=== PATIENT | female | born 2005 | race Two or more races ===

== ENCOUNTER 2025-10-30 12:31 | Outpatient (AMB) | payer BC, SELFPAY ==
--- OUTSIDE RECORDS SUMMARY | 2025-10-30 12:33 | XMS_ITS | Encounter Summary ---
Author Organization [facility] Address [address] [place] [address] Care Team Providers Care Comb Setter Name Role Phone PcpLaya MD Primary Care Provider Unavailabl e Encounter Details Date Type Department Care Team (Late st Contact Info) Description 06/11/2023 Orders Only [address] [address] Meron Mendes DMD [address] [place] [address] Social History Tobacco Use Types Packs/Day Years Used Date Smoking Tobacco: Never Assessed Comments Unknown Sex and Gender Information Value Date Recorded Sex Assigned at Not on file Legal Sex Female 4:27 PM EDT Gender Identity Not on file Sexual Orientation Not on file COVID-19 Exposure Response Date Recorded In the last 10 days, have yo u been in contact with someone who was confirmed or suspected to have Coronavirus/COVID-19? No / Unsure 05/28/2023 12:20 PM EDT documented as of this encounter Plan of Treatment Not on file documented as of this encounter Visit Diagnoses Not on filedocumented in this encounter Care Teams Comb Setter Relationship Specialty Start Date End Date PcpLaya MD [address] [place] [id number] PCP - General Internal Medicine 09/24/22 documented as of this encounter
--- OUTSIDE RECORDS SUMMARY | 2025-10-30 12:33 | XMS_ITS | Encounter Summary ---
Author Organization [employer] Address [address] [place] [address] Care Team Providers Care Kiss Mixer Name Role Phone Physician, Pcp Unknown Primary Care Provider Shahrzad vailable Encounter Details Date Type Department Care Team (Latest Contact Info) Description 10/29/2025 Lab Requisition [facility] - Main Lab [address] [facility] [place] [address] Candie Arellano MD [address] [facility] [address] [place] [address] Encounter for gynecological examination (general) (routine) without abnormal findings Social History Tobacco Use Types Packs/Day Years Used Date Smoking Tobacco: Never Assessed Comments Unknown Sex and Gender Information Value Date Recorded Sex Assigned at Not on file Legal Sex Female 1:34 PM EST Gender Identity Not on file Sexual Orientation Not on file documented as of this encounter Plan of Treatment Pending Results Name Type Priority Associated Diagnoses Date /Time Pap smear Pathology and Cytology Routine Encounter for gynecological examination (general) (routine) without abnormal findings 10/28/2025 12:00 AM EST documented as of this encounter Visit Diagnoses Diagnosis Encounter for gynecological examination (general) (routine) without abnormal findings documented in this encounter Care Teams Kiss Mixer Relationship Specialty Start Date End Date Physician, Pcp Unknown PCP - General 10/29/25 documented as of this encounter
--- OUTSIDE RECORDS SUMMARY | 2025-10-30 12:33 | XMS_ITS | Encounter Summary ---
Author Organization [facility] Address [address] [place] [address] Care Team Providers Care Paper Inspector Name Role Phone Physician, Pcp Unknown Primary Care Provider Shahrzad vailable Encounter Details Date Type Department Care Team (Latest Contact Info) Description 10/28/2025 Lab Requisition [facility] - Main Lab 299 [facility] [place] [address] Candie Arellano MD [address] [phone] Encounter for screening for infections with a predominantly sexual mode of transmission; Acute vaginitis Social History Tobacco Use Types Packs/Day Years Used Date Smoking Tobacco: Never Assessed Comments Unknown Sex and Gender Information Value Date Recorded Sex Assigned at Not on file Legal Sex Female 1:34 PM EST Gender Identity Not on file Sexual Orientation Not on file documented as of this encounter Plan of Treatment Not on file documented as of this encounter Procedures Procedure Name Priority Date/Time Associated Diagnosis Comments VAGINITIS PATHOGENS BY PCR Routine 10/28/2025 12:00 AM EST Encounter for screening for infections with a predominantly sexual mode of transmission Acute vaginitis CHLAMYDIA TRACHOMATIS AND NEISSERIA GONORRHOEAE PCR Routine 10/28/2025 12:00 AM EST Encounter for screening for infections with a predominantly sexual mode of transmission Acute vaginitis documented in this encounter Results * Vaginitis pathogens molecular study (10/28/2025 12:00 AM EST) Trichomonas vaginalis Negative Negative 10/29/2025 8:59 AM EST [facility] Gardnerella vaginalis Negative Negative 10/29/2025 8:59 AM EST [facility] Vanessa Species Negative Negative 8:59 AM EST [facility] Swab Vaginal structure / Unknown 10/28/2025 10/28/2025 1:38 PM EST us Candie Arellano MD LAB MICROBIOLOGY - GENER AL ORDERABLES Final Result Performing Organization Address City/[facility]/ZIP Co de Phone Number [facility] [address] [place] [address], [place] [phone] * Chlamydia trachomatis and Neisseria gonorrhoeae molecular study (10/28/2025 12:00 AM EST) Neisseria gonorrhoeae PCR Negative Negative LAB MOLECULAR DIAGNOSTICS METHOD 10/28/2025 4:28 PM EST [facility] Chlamydia trachomatis PCR Negative Negative LAB MOLECULAR DIAGNOSTICS METHOD 10/28/2025 4:28 PM EST [facility] Swab Cervix uteri structure / Unknown 10/28/2025 10/28/2025 1:38 PM EST us Candie Arellano MD LAB MICROBIOLOGY - GENER AL ORDERABLES Final Result Performing Organization Address City/[facility]/ZIP Co de Phone Number [facility] [address] [place] [address], [place] [phone] documented in this encounter Visit Diagnoses Diagnosis Encounter for screening for infections with a predominantly sexual mode of transmission Acute vaginitis Unspecified vaginitis and vulvovaginitis documented in this encounter Care Teams Paper Inspector Relationship Specialty Start Date End Date Physician, Pcp Unknown PCP - General 10/29/25 documented as of this encounter
--- OUTSIDE RECORDS SUMMARY | 2025-10-30 12:33 | XMS_ITS | Encounter Summary ---
Author Organization [employer] [facility] Address [address] [place] [address] Care Team Providers Care Change Release Manager Name Role Phone Unavailable Primary Care Provider Unavailabl e Encounter Details Date Type Department Care Team (Latest Contact Info) Description 08/16/2021 Abstract [facility] Dental, Provider, DDS Social History Tobacco Use Types Packs/Day Years Used Date Smoking Tobacco: Never Assessed Comments Unknown Sex and Gender Information Value Date Recorded Sex Assigned at Female 09/17/2022 10:34 AM EDT Legal Sex Female 10:34 AM EDT Gender Identity Female 09/17/2022 10:34 AM EDT Sexual Orientation Straight 09/17/2022 10 :34 AM EDT documented as of this encounter Plan of Treatment Not on file documented as of this encounter Visit Diagnoses Not on filedocumented in this encounter
--- OUTSIDE RECORDS SUMMARY | 2025-10-30 12:33 | XMS_ITS | Clinical Summary ---
Author Organization [facility] Address [address] [place] [address] Care Team Providers Care Tag Stringer Name Role Phone Pcp, No MD Primary Care Provider Unavailabl e Allergies No known active allergies Medications amphetamine-dex troamphetamine XR (ADDERALL XR) 15 mg 24 hr capsule as needed. 04/29/2023 Active methylphenidate HCl 54 mg tablet extended release 24hr as needed. 05/20/2023 Activ e atomoxetine (STRATTERA) 40 mg capsule Take 40 mg by mouth in the morning. Active chlorhexidine (Peridex) 0.12 % solution Apply 15 mL to the mouth or throat in the morning and 15 mL before bedtime. 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 Never true 06/26/20 23 Within the past 12 months, t he food you bought just didn't last and you didn't have money to get more. Never true 06/26/2023 Comments No Sex and Gender Information Value Date Recorded Sex Assigned at Not on file Legal Sex Female 4:27 PM EDT Gender Identity Not on file Sexual Orientation Not on file Last Filed Vital Signs Vital Sign Reading Time Taken Comments Blood Pressure 106/56 06/27/2023 2:59 PM EDT Pulse 98 06/27/2023 2:59 PM EDT Temperature 36.6 C (97.8 F) 06/27/2023 2:59 PM EDT Respiratory Rate 18 06/27/2023 2:59 PM EDT Oxygen Saturation 99% 06/27/2023 2:59 PM EDT Inhaled Oxygen Concentration - - Weight 69.7 kg (153 lb 11.2 oz) 06/26/2023 4:32 PM EDT Height 167.6 cm (5' 6 ) 06/26/2023 4:32 PM EDT Body Mass Index 24.81 06/26/2023 4:32 PM EDT Plan of Treatment Health Maintenance Due Date Last Done Comments HIV Screening 2003 Chlamydia Screening 2019 Hepatitis C Screening 2021 Pneumococcal Vaccine: At-Ris k and Pediatric Patients (0 to 49 Years) (1 of 2 - PCV) 2022 01/25/2005, 2003, 2003 Pap Smear 2024 DTaP,Tdap,and Td Vaccines (6 - Td or Tdap) 05/16/2025 05/16/2015, 01/14/2008, 2003, Additional history exists COVID-19 Vaccine (4 - 2024-2 6 season) 2025 12/02/2021, 06/05/2021, 05/15/2021 Influenza Vaccine (#1) 2025 0, 08/17/2009, 09/10/2008, Additional history exists Zoster Vaccines (1 of 2) 2053 Hepatitis B Vaccines Completed 2003, 2003, 2003 MMR Vaccines Completed 01/14/2008, 06/10/2004 HPV Vaccines Completed 09/11/2018, 11/26/2017 Hepatitis A Vaccines Completed 10/27/2020, 11/26/19 18 Meningococcal Vaccine Completed 10/27/2020, 015 Medical Devices Implanted Type Area Building Certifier Device Identifier Shelf Expiration Date Model / Serial / Lot 1cc Jurgen Dbm Putty, Human Tissue, Demineralized Bone Matrix - [id number] - [id number] Implanted:Qty: 1 on 06/26/2023 by Carlton Back DDS at [facility] Bone N/A: Maxilla [employer] - Sofamor Danek 04/01/2027 [id number] / [id number] / 6mm Synthes Titanium Matrixmidface Screw, Self-Drilling - [id number] Implanted:Qty: 19 on 06/26/2023 by Carlton Back DDS at [facility] Ortho Screw Bilateral: Maxilla DePuy Synthes CMF 503.22 6.01 / / 6mm Synthes Titanium Matrixmidface Emergency Screw - [id number] Implanted:Qty: 3 on 06/26/2023 by Carlton Back DDS at [facility] Ortho Screw N/A: Maxilla DePuy Synthes CMF 503.23 6.01 / / Trumatch Orthognathics Full Maxillary Surgical Kit - [id number] Implanted:Qty: 1 on 06/26/2023 by Carlton Back DDS at [facility] N/A: Maxilla Synthes [facility] [id number] / / Explanted Type Area Building Certifier Device Identifier Shelf Expiration Date Model / Serial / Lot 1.1 Mm Drill Bit, Mini Quick Coupling, 12 Mm Stop - [id number] Explanted:Qty : 1 on 06/26/2023 at [facility] [employer] DePuy Synthes Spine 317.32 / / Description:NOT AN IMPLANT Insurance Advance Directives For more information, please contact: [phone] * Full Code (Latest Code Status on File) Date Activated Date Inactivated Comments 06/26/2023 12:57 PM 06/27/2023 7:19 PM Care Teams Tag Stringer Relationship Specialty Start Date End Date Laya Jin MD [address] [place] [address] PCP - General Internal Medicine 09/24/22
--- OUTSIDE RECORDS SUMMARY | 2025-10-30 12:33 | XMS_ITS | Clinical Summary ---
Author Organization [address] [facility] Address [address] [place] [address] Phone Care Team Providers Care Senior Engineering Specialist Name Role Phone Physician, Pcp Unknown Primary Care Provider Shahrzad vailable Encounters Date Type Department Care Team Description 10/29/2025 Lab Requisition [facility] [address] [facility] [place] [address] Candie Arellano MD Encounter for gynecological examination (general) (routine) without abnormal findings 10/28/2025 Lab Requisition [facility] [address] [facility] [place] [address] Candie Arellano MD Encounter for screening for infections with a predominantly sexual mode of transmission; Acute vaginitis from Last 3 Months Social History Tobacco Use Types Packs/Day Years Used Date Smoking Tobacco: Never Assessed Comments Unknown Sex and Gender Information Value Date Recorded Sex Assigned at Not on file Legal Sex Female 1:34 PM EST Gender Identity Not on file Sexual Orientation Not on file Plan of Treatment Health Maintenance Due Date Last Done Comments HPV Vaccines (1 - 3-dose series) 2018 Meningococcal B Vaccine (1 o f 2 - Standard) 2019 DTaP,Tdap,and Td Vaccines (1 - Tdap) 2022 Hepatitis B Vaccines (1 of 3 - 19+ 3-dose series) 2022 Cervical Cancer Screening: P ap Smear 2024 Depression Screening 11/18/2024 COVID-19 Vaccine (1 - 2024-2 6 season) 2025 Influenza Vaccine (#1) 2025 HIV Screening 10/28/2025 Hepatitis C Screening 10/28/2025 Social Influencers of Health Screening 10/28/2025 Gonorrhea/Chlamydia Screening 10/28/2026 10/28/2025 RSV Immunization Adult Patie nts (1 - 1-dose 75+ series) 2078 HIB Vaccines Aged Out No longer eligi ble based on patient's age to complete this topic Hepatitis A Vaccines Aged Out No long er eligible based on patient's age to complete this topic IPV Vaccines Aged Out No longer eligi ble based on patient's age to complete this topic MMR Vaccines Aged Out No longer eligi ble based on patient's age to complete this topic Meningococcal ACWY Vaccine Aged Out N o longer eligible based on patient's age to complete this topic Pneumococcal Vaccine: Pediat rics (0 to 5 Years) and At-Risk Patients (6 to 49 Years) Aged Out No longer eligi ble based on patient's age to complete this topic RSV Immunization Patients Un alvaro 20 months Aged Out No longer eligible b ased on patient's age to complete this topic Varicella Vaccines Aged Out No longer eligible based on patient's age to complete this topic Procedures Procedure Name Priority Date/Time Associated Diagnosis Comments VAGINITIS PATHOGENS BY PCR Routine 10/28/2025 12:00 AM EST Encounter for screening for infections with a predominantly sexual mode of transmission Acute vaginitis CHLAMYDIA TRACHOMATIS AND NEISSERIA GONORRHOEAE PCR Routine 10/28/2025 12:00 AM EST Encounter for screening for infections with a predominantly sexual mode of transmission Acute vaginitis from Last 3 Months Results * Vaginitis pathogens molecular study (10/28/2025 12:00 AM EST) Trichomonas vaginalis Negative Negative 10/29/2025 8:59 AM EST [facility] Gardnerella vaginalis Negative Negative 10/29/2025 8:59 AM EST [facility] Vanessa Species Negative Negative 8:59 AM EST [facility] Swab Vaginal structure / Unknown 10/28/2025 10/28/2025 1:38 PM EST us Candie Arellano MD LAB MICROBIOLOGY - GENER AL ORDERABLES Final Result [facility] [address] [place] [address], [place] [phone] * Chlamydia trachomatis and Neisseria gonorrhoeae molecular study (10/28/2025 12:00 AM EST) Neisseria gonorrhoeae PCR Negative Negative LAB MOLECULAR DIAGNOSTICS METHOD 10/28/2025 4:28 PM EST [facility] Chlamydia trachomatis PCR Negative Negative LAB MOLECULAR DIAGNOSTICS METHOD 10/28/2025 4:28 PM EST [facility] Swab Cervix uteri structure / Unknown 10/28/2025 10/28/2025 1:38 PM EST us Candie Arellano MD LAB MICROBIOLOGY - GENER AL ORDERABLES Final Result Performing Organization Address City/[facility]/ZIP Co de Phone Number [facility] [address] [place] [address], [place] [phone] from Last [address] [place] [address] [place] [address] ([facility]) Care Teams Senior Engineering Specialist Relationship Specialty Start Date End Date Physician, Pcp Unknown PCP - General 10/29/25
--- OUTSIDE RECORDS SUMMARY | 2025-10-30 12:33 | XMS_ITS | Clinical Summary ---
Author Organization [employer] Address [address] [facility] [address] [place] [address] Care Team Providers Care Manager Nuclear Name Role Phone Unavailable Primary Care Provider Unavailabl e Allergies No known active allergies Medications amphetamine-dext roamphetamine XR (Adderall XR) 15 MG 24 hr capsule Take 15 mg by mouth. 04/29/2023 Active cetirizine (ZyrTEC) 10 MG tablet Take 1 tablet by mouth. 01/14/2023 Active Social History Tobacco Use Types Packs/Day Years Used Date Smoking Tobacco: Never Passive Smoke Exposure: Never Smokeless Tobacco: Never Tobacco Cessation:Counseling Given: Not Answered Comments Unknown Sex and Gender Information Value Date Recorded Sex Assigned at Female 09/17/2022 10:34 AM EDT Legal Sex Female 10:34 AM EDT Gender Identity Female 09/17/2022 10:34 AM EDT Sexual Orientation Straight 09/17/2022 10 :34 AM EDT Last Filed Vital Signs Vital Sign Reading Time Taken Comments Blood Pressure 100/62 11/12/2023 2:18 PM EST Pulse 65 11/12/2023 2:18 PM EST Temperature - - Respiratory Rate - - Oxygen Saturation - - Inhaled Oxygen Concentration - - Weight - - Height - - Body Mass Index - - Plan of Treatment Health Maintenance Due Date Last Done Comments Chlamydia and Gonorrhea Screening 2003 Depression Screening 2003 HIV Screening 2003 Lipid Panel 2003 SDOH Screening 2003 Disability Screening 2003 Alcohol/Substance Use Screening 2015 Family Planning (PISQ) 2018 Hepatitis C Screening 2021 Pneumococcal Vaccine: Pediatrics (0 to 5 Years) and At-Risk Patients (6 to 49) Years (1 of 2 - PCV) 2022 01/25/2005, 2003, 2003 Meningococcal B Vaccine (2 of 2 - Trumenba SCDM 2-dose series) 12/11/2023 06/10/2023 Dental Prophylaxis 05/14/2024 11/12/2023, 0 08/16/2021, 01/02/2019, Additional history exists Pap Smear 2024 Dental Oral Exam 06/03/2024 12/03/2023, , 01/02/2019, Additional history exists Tobacco Screening 11/12/2024 11/12/2023 Dental X-Ray: Bitewings 12/04/2024 12/03/19, 12/03/2023, 11/12/2023, Additional history exists DTaP/Tdap/Td Vaccines (6 - Td or Tdap) 05/16/2025 05/16/2015, 01/14/2008, 2003, Additional history exists COVID-19 Vaccine ( season) 2025 08/24/2022, 12/02/2021, 06/05/2021, Additional history exists Influenza Vaccine (#1) 2025 , 12/02/2021, 10/27/2020, Additional history exists Dental X-Ray: Full Mouth 11/13/2026 11/12/2023, 06/19 Zoster Vaccines (1 of 2) 2053 RSV Patients and Patients Aged 60 years or older (1 - 1-dose 75+ series) 2078 Hepatitis B Vaccines Completed 2003, 2003, 2003 HIB Vaccines Completed 01/25/2005, 11/19, 2003, Additional history exists IPV Vaccines Completed 01/14/2008, 01/16, 2003, Additional history exists HPV Vaccines Completed 09/11/2018, 08/19, 11/26/2017, Additional history exists Hepatitis A Vaccines Completed 10/27/2020, 11/26/19 18 Meningococcal Vaccine Completed 10/27/2020 , 10/27/2020, 05/16/2015 RSV under 20 months Aged Out No longe r eligible based on patient's age to complete this topic Rotavirus Vaccines Aged Out No longer eligible based on patient's age to complete this topic Procedures Procedure Name Priority Date/Time Associated Diagnosis Comments BITEWING - SINGLE RADIOGRAPHIC IMAGE Routine 12/03/2023 2:00 PM EST PERIODIC ORAL EVALUATION - ESTABLISHED PATIENT Routine 12/03/2023 2:00 PM EST PROPHYLAXIS - ADULT Routine 11/12/2023 2 :00 PM EST INTRAORAL - COMPLETE SERIES OF RADIOGRAPHIC IMAGES Routine 11/12/2023 2:00 PM EST from Last 3 Months or Most Recently Relevant to Health Maintenance Insurance DENTAL - [employer] D[employer] PPO [facility]ENT[facility] [employer] DENTAL PPO
--- NOTE | 2025-10-30 12:38 | MHC.OFFWIV ---
Intake Vital Signs 10/30/25 12:41 Height 5 ft 6 in Weight 164 lb BMI 26.5 BP 100/70 Blood Pressure Location Lt brachial Position Sitting Respiration 16 Pulse 92 Pulse Source Pulse Oximeter Temp 98.2 F Temp Source Oral Pulse Oximetry (%) 98 Oxygen Delivery Method Room Air Intake Visit Reasons: EP, possible sinus infection Intake Note: Pt is here tody nasal congestion and swollen throat Allergies No Known Allergies Allergy (Verified 10/30/25 12:38) Medication List - Last Reconciled 10/30/25 by Chase Bruno MD dextroamphetamine-amphetamine 15 mg ER (Adderall XR) 1 cap PO QAM lactulose PO HPI EP, possible sinus infection HPI Details Nasal congestion x 2 weeks then went away and then this past few days is back and worse tenderness at maxillary sinuses Mild feverishness but no fever postnasal drip with sore throat mild cough without shortness of breast no sick contacts Review of Systems Const Denies chills, Denies fatigue, Denies fever(s), Denies headache(s) and Denies weakness ENT Details: see HPI Denies dizziness and Denies headache(s) Card Denies dyspnea Resp Reports cough ( mild), Denies dyspnea, Denies wheezing and Denies other ( shortness of breath) Musc Denies numbness and Denies tingling Neuro Denies dizziness, Denies headache(s), Denies numbness, Denies tingling, Denies paresthesias and Denies weakness Psych Denies anxiety and Denies depression Endo Denies fatigue Aller/Immun Denies wheezing Physical Exam Vital Signs: Last Vital Signs Temp 98.2 F 10/30/25 12:41 Pulse 92 10/30/25 12:41 Resp 16 10/30/25 12:41 BP 100/70 10/30/25 12:41 Pulse Ox 98 10/30/25 12:41 Oxygen Delivery Method Room Air 10/30/25 12:41 BMI result Body Mass Index 26.5 Const General: no acute distress and well developed Nutritional Appearance: well nourished Orientation/consciousness: patient oriented x3 HEENT Other: significant nasal congestion and discharge with scant blood posterior pharyngeal erythema but no exudates minimal LAD pain and tenderness at maxillary sinuses with decreased transillumination on left Head: Yes normocephalic and Yes atraumatic Eyes General: appearance normal, both eyes and all related structures Pupils: Equal, round and reactive pupils present EOM: EOMs intact bilaterally Resp Effort & Inspection: normal respiratory effort Auscultation: clear to auscultation bilaterally Cardio Rate: regular rate Rhythm: regular rhythm Heart sounds: S1 normal heart sound present, S2 normal heart sound present, no gallops, no murmurs and no rubs Neuro General: patient oriented x3 and gait normal Cranial nerves: Yes Equal, round and reactive pupils present Psych Affect: normal affect Results AMB Rapid Strep AMB Rapid Strep Negative Last Edit by Martha Escalante CMA on 10/30/25 12:55 Assessment & Plan Assessment & Plan (1) Sinus infection: Code(s): J32.9 - Chronic sinusitis, unspecified Plan: sending a script for amoxicillin advised warm compresses on maxillary sinus hydrate well and get plenty of rest call or return to office if worsens or not improving Orders: Orders AMB Rapid Strep Screen Today Z13.9 - Encounter for screening, unspecified Medications: New amoxicillin 500 mg PO Q12H 20 tabs 0RF 10 days Coding Level of Care Code Est Pt Level 3 (72247) Diagnoses Sinus infection J32.9
[2025-10-30 12:41] VITALS: BP 100/70; PULSE 92; RESP 16; TEMP 36.8; O2SAT 98; BMI 26.5
== END 2025-10-30 13:03 | disposition home or self-care (01) ==
PROVIDERS: PCP Pediatrics; Visit Provider Family Medicine
DX: Z13.9 Encounter for screening, unspecified (principal); J32.9 Chronic sinusitis, unspecified

== ENCOUNTER → 2025-10-30 12:31 | Outpatient (BNVA) | payer BC, SELFPAY | PROVIDERS: PCP Pediatrics | DX: J32.9 Chronic sinusitis, unspecified (principal) | CPT/HCPCS: 87880 ==